=== PATIENT | female | born 1990 | race Caucasian/White ===

== ENCOUNTER → 2020-06-04 15:15 | Outpatient (CLI) | payer OTHER, SELFPAY ==
[2020-06-04] MEDS: COVID-19 VACC #1, MRNA(MOD) 100 MCG/0.5 ML VIAL IM (15:26)
== END ==
PROVIDERS: Visit Provider Internal Medicine
DX: Z23 Encounter for immunization (principal)
CPT/HCPCS: 0011A; 91301

== ENCOUNTER → 2020-07-02 15:30 | Outpatient (CLI) | payer OTHER, SELFPAY ==
[2020-07-02] MEDS: COVID-19 VACC #2, MRNA(MOD) 100 MCG/0.5 ML VIAL IM (15:39)
== END ==
PROVIDERS: Visit Provider Internal Medicine
DX: Z23 Encounter for immunization (principal)
CPT/HCPCS: 0012A; 91301

== ENCOUNTER 2020-11-13 16:13 | Emergency (ER) | payer OTHER, SELFPAY ==
[2020-11-13 16:23] VITALS: BP 136/83; PULSE 126; RESP 32; TEMP 36.4; O2SAT 100; BMI 20.5
--- NOTE | 2020-11-13 16:28 | ED_ITS ---
HPI - Anxiety <Gary Aguilera PA-C - Last Filed: 11/13/20 17:45> General Chief Complaint: Anxiety Stated Complaint: SOB, NUMBNESS in ARMS AND HANDS Time Seen by Provider: 11/13/20 16:27 Source: patient Mode of arrival: Ambulatory History of Present Illness HPI narrative: Jen presents today with chief complaint bilateral arm tingling shortness of breath dizziness that came on gradually she was getting ready for work. Symptoms became much worse right before she was about to clock and for her job. She has history of anxiety and feels like she may be having a panic attack. They recently had an exposure to COVID at their work 1 week ago. Since then she has had 2- COVID tests and has been asymptomatic. She is fully vaccinated for COVID. She denies any significant nausea, vomiting, diarrhea, constipation, chest pain or any other acute concerns or complaints at this time. She denies any personal or family history of cardiac or pulmonary problems. She does not take any prescription medications regularly. Related Data Home Medications Medication Instructions Recorded Confirmed No Known Home Medications 11/13/20 11/13/20 Allergies Allergy/AdvReac Type Severity Reaction Status Date / Time No Known Drug Allergies Allergy Verified 11/13/20 16:25 Review of Systems <Gary Aguilera PA-C - Last Filed: 11/13/20 17:45> Review of Systems Narrative: As per HPI Patient History <Gary Aguilera PA-C - Last Filed: 11/13/20 17:45> Social History Smoking Status: Never smoker Smoking Status: Never smoker alcohol intake frequency: other Substance Use Type: does not use Exam <FANTASMA Long Last Filed: 11/13/20 17:45> Narrative Exam Narrative: Exam Narrative: Const General: cooperative, healthy appearing, comfortable, no acute distress, well developed and well groomed Nutritional Appearance: average body habitus Orientation: alert and oriented x3 HENMT Head: normal to inspection and atraumatic Ears: hearing grossly normal bilaterally Nose: external nose normal and nares normal Face and sinus: normal facial exam Neck Neck: normal visual inspection and supple Resp Effort & Inspection: Tachypneic, able to speak in complete sentences, no audible wheezes, no nasal flaring. Clear to auscultation bilaterally Cardiac Slightly tachycardic rate, regular rhythm, no murmurs rubs or gallops heard Neuro General: alert, oriented x3, gait normal, tone normal and moves all extremities, cranial nerves 2-12 grossly intact. Cognition: normal cognition Speech: speech normal Gait: normal gait Psych Appearance: grossly normal and well kempt Mental Status: mental status grossly normal Speech and Movement: speech and movement normal Mood: congruent mood Affect: normal affect Initial Vital Signs Initial Vital Signs: Vital Signs Temperature 97.6 F 11/13/20 16:23 Pulse Rate 126 H 11/13/20 16:23 Respiratory Rate 32 H 11/13/20 16:23 Blood Pressure 136/83 11/13/20 16:23 Pulse Oximetry 100 11/13/20 16:23 <Carolynn Wolff MD - Last Filed: 11/13/20 17:53> Initial Vital Signs Initial Vital Signs: Vital Signs Temperature 97.6 F 11/13/20 16:23 Pulse Rate 126 H 11/13/20 16:23 Respiratory Rate 32 H 11/13/20 16:23 Blood Pressure 136/83 11/13/20 16:23 Pulse Oximetry 100 11/13/20 16:23 Course <Gary Aguilera PA-C - Last Filed: 11/13/20 17:45> Orders Ordered: ED Orders 11/13/20 16:38 EKG-12 Lead Stat 11/13/20 16:55 COVID19 -Nasal swab/Pre-Proc Stat 11/13/20 17:09 Complete Blood Count AUTO DIFF Stat Comprehensive Metabolic Panel Stat Magnesium Stat Vital Signs Vital signs: Vital Signs - 8 hr 11/13/20 16:23 11/13/20 17:49 Temperature 97.6 F 98.8 F Pulse Rate 126 H 93 H Respiratory Rate 32 H 18 Blood Pressure 136/83 128/74 Pulse Oximetry 100 98 <Carolynn Wolff MD - Last Filed: 11/13/20 17:53> Orders Ordered: ED Orders 11/13/20 16:38 EKG-12 Lead Stat 11/13/20 16:55 COVID19 -Nasal swab/Pre-Proc Stat 11/13/20 17:09 Complete Blood Count AUTO DIFF Stat Comprehensive Metabolic Panel Stat Magnesium Stat Vital Signs Vital signs: Vital Signs - 8 hr 11/13/20 16:23 11/13/20 17:49 Temperature 97.6 F 98.8 F Pulse Rate 126 H 93 H Respiratory Rate 32 H 18 Blood Pressure 136/83 128/74 Pulse Oximetry 100 98 MDM - Anxiety <Gary Aguilera PA-C - Last Filed: 11/13/20 17:45> Lab Data Result diagrams: 11/13/20 17:09 11/13/20 17:09 Labs: Lab Results 11/13/20 11/13/20 11/13/20 Range/Units 16:55 17:09 17:09 WBC 9.2 (4.5-11.0) X10^3/uL RBC 3.55 L (4.0-5.2) X10^6/uL Hgb 11.2 L (12.0-16.0) g/dL Hct 33.7 L (36-46) % MCV 95.0 (80-100) fL MCH 31.6 (26-34) PG MCHC 33.3 (30-36) % RDW 13.4 (11.6-14.8) % Plt Count 231 (150-400) X10^3/uL Neut % (Auto) 73.9 (50-75) % Lymph % (Auto) 19.0 L (25-40) % Whitley % (Auto) 6.5 (3-14) % Eos % (Auto) 0.3 L (2-4) % Baso % (Auto) 0.3 (0-2) % Neut # (Auto) 6800 (9959-5988) /uL Lymph # (Auto) 1700 (7983-2086) /uL Whitley # (Auto) 600 (0-900) /uL Eos # (Auto) 0 (0-450) /uL Baso # (Auto) 0 (0-100) /uL Sodium 135 L (137-145) mmol/L Potassium 3.4 (3.4-5.1) mmol/L Chloride 102 (98-107) mmol/L Carbon Dioxide 24 (22-32) mmol/L BUN 15 (7-17) mg/dL Creatinine 0.56 (0.52-1.04) mg/dL Estimated GFR > 60.0 (>60) mL/min BUN/Creatinine Ratio 26.8 H (6-22) Glucose 103 H (70-100) mg/dL Calcium 9.1 (8.4-10.2) mg/dL Magnesium 1.7 (1.6-2.3) mg/dL Total Bilirubin 0.4 (0.2-1.3) mg/dL AST 32 (14-36) IU/L ALT 27 (<35) IU/L Alkaline Phosphatase 49 (38-126) U/L Total Protein 7.3 (6.3-8.2) g/dL Albumin 4.4 (3.5-5.0) g/dL Globulin 2.9 (1.7-4.1) g/dL Albumin/Globulin Ratio 1.5 (1.0-2.8) SARS-CoV-2 (PCR) Negative (Negative) MDM Narrative Medical decision making narrative: Differential diagnosis considered includes Brugada syndrome, WPW, hypertrophic cardiomyopathy, PE, SARS-CoV-2 infection. Patient's symptoms have completely resolved since she has been here in the emergency department. Her lungs are clear to auscultation in she saturating at 100% on room air. Her tachypnea has resolved. She feels much less anxious. She has a slightly prolonged QTC on EKG but EKG is otherwise normal. No evidence of ischemia at this time. Electrolytes are all within normal limits. We will discharge home at this time with strict ER return precautions. Patient verbalizes understanding and agrees to plan and has no further concerns at this time. Thank you A [id number] system was used with the dictation of this note. Please disregard any spelling or grammatical errors. <Carolynn Wolff MD - Last Filed: 11/13/20 17:53> Lab Data Labs: Lab Results 11/13/20 11/13/20 11/13/20 Range/Units 16:55 17:09 17:09 WBC 9.2 (4.5-11.0) X10^3/uL RBC 3.55 L (4.0-5.2) X10^6/uL Hgb 11.2 L (12.0-16.0) g/dL Hct 33.7 L (36-46) % MCV 95.0 (80-100) fL MCH 31.6 (26-34) PG MCHC 33.3 (30-36) % RDW 13.4 (11.6-14.8) % Plt Count 231 (150-400) X10^3/uL Neut % (Auto) 73.9 (50-75) % Lymph % (Auto) 19.0 L (25-40) % Whitley % (Auto) 6.5 (3-14) % Eos % (Auto) 0.3 L (2-4) % Baso % (Auto) 0.3 (0-2) % Neut # (Auto) 6800 (1581-5379) /uL Lymph # (Auto) 1700 (9239-4381) /uL Whitley # (Auto) 600 (0-900) /uL Eos # (Auto) 0 (0-450) /uL Baso # (Auto) 0 (0-100) /uL Sodium 135 L (137-145) mmol/L Potassium 3.4 (3.4-5.1) mmol/L Chloride 102 (98-107) mmol/L Carbon Dioxide 24 (22-32) mmol/L BUN 15 (7-17) mg/dL Creatinine 0.56 (0.52-1.04) mg/dL Estimated GFR > 60.0 (>60) mL/min BUN/Creatinine Ratio 26.8 H (6-22) Glucose 103 H (70-100) mg/dL Calcium 9.1 (8.4-10.2) mg/dL Magnesium 1.7 (1.6-2.3) mg/dL Total Bilirubin 0.4 (0.2-1.3) mg/dL AST 32 (14-36) IU/L ALT 27 (<35) IU/L Alkaline Phosphatase 49 (38-126) U/L Total Protein 7.3 (6.3-8.2) g/dL Albumin 4.4 (3.5-5.0) g/dL Globulin 2.9 (1.7-4.1) g/dL Albumin/Globulin Ratio 1.5 (1.0-2.8) SARS-CoV-2 (PCR) Negative (Negative) Discharge Plan Departure Patient Disposition: Home Clinical Impression: Acute anxiety Instructions: DI for Anxiety -- Adult Activity Restrictions/Additional Instructions: It was very nice to meet you this afternoon. Your examination today has been reassuring. I suspect that you had an acute anxiety reaction which caused your symptoms. Please follow-up with your primary care provider for further management of this. If you experience worsening shortness of breath, chest pain, fever or have any additional concerns or complaints please return to the emergency department for re-evaluation. Thank you Gary Aguilera PA-C Prescriptions: No Action No Known Home Medications RF: 0 <Carolynn Wolff MD - Last Filed: 11/13/20 17:53> Cosign ED Attending Cosjackelynature Attestation: I was immediately available in the department for consultation throughout this patient's visit. I agree with documentation as above. Carolynn Wolff MD
[2020-11-13 17:26] LABS: Alanine Aminotransferase 27 IU/L (<35); Albumin 4.4 g/dL (3.5-5.0); Albumin Globulin Ratio 1.5 (1.0-2.8); Alkaline Phosphatase 49 U/L (38-126); Aspartate Aminotransferase 32 IU/L (14-36); BUN Creatinine Ratio 26.8 (6-22); Bilirubin Total 0.4 mg/dL (0.2-1.3); Blood Urea Nitrogen 15 mg/dL (7-17); Calcium 9.1 mg/dL (8.4-10.2); Carbon Dioxide 24 mmol/L (22-32); Chloride 102 mmol/L (98-107); Estimated Glomerular Filt Rate > 60.0 mL/min (>60); Globulin 2.9 g/dL (1.7-4.1); Glucose 103 mg/dL (70-100); HEMOLYSIS < 15 (0-50); Magnesium 1.7 mg/dL (1.6-2.3); Potassium 3.4 mmol/L (3.4-5.1); Sodium 135 mmol/L (137-145); Total Protein 7.3 g/dL (6.3-8.2)
[2020-11-13 17:31] LABS: Add Manual Diff / Slide Review NO; Basophils Absolute Auto 0 /uL (0-100); Basophils Percent Auto 0.3 % (0-2); Eosinophils Absolute Auto 0 /uL (0-450); Eosinophils Percent Auto 0.3 % (2-4); Hematocrit 33.7 % (36-46); Hemoglobin 11.2 g/dL (12.0-16.0); Lymphocytes Absolute Auto 1700 /uL (1100-4500); Mean Corpuscular HGB Conc 33.3 % (30-36); Mean Corpuscular Hemoglobin 31.6 PG (26-34); Monocytes Absolute Auto 600 /uL (0-900); Monocytes Percent Auto 6.5 % (3-14); Neutrophils Absolute Auto 6800 /uL (1500-7000); Neutrophils Percent Auto 73.9 % (50-75); Platelet Count 231 X10^3/uL (150-400); Red Blood Cell Count 3.55 X10^6/uL (4.0-5.2); Red Cell Distribution Width 13.4 % (11.6-14.8); White Blood Cell Count 9.2 X10^3/uL (4.5-11.0)
[2020-11-13 17:33] LABS: COVID19 -Nasal RAPID Negative (Negative)
--- NOTE | 2020-11-13 17:45 | PC.NURSE ---
Rounded on this pt prior to DC. She is calm, quiet, states she feels much better. Her vitals are stable with resps e/u, relaxed posture, good color. Today was her first episode of anxiety. Educated by triage nurse on breathing techniques, and encouraged to think about her day and what may have been an overwhelming trigger for her. Pt communicates understanding.
[2020-11-13 17:49] VITALS: BP 128/74; PULSE 93; RESP 18; TEMP 37.1; O2SAT 98
== END 2020-11-13 17:58 | disposition home or self-care (01) ==
PROVIDERS: Emergency Provider Physician Assistant
DX: F41.9 Anxiety disorder, unspecified (principal); R20.2 Paresthesia of skin; R06.02 Shortness of breath; Z20.822 Contact with and (suspected) exposure to COVID-19
CPT/HCPCS: 36415; 80053; 83735; 85025; 87635; 93005; 93010; 99283; 99284; C9803